=== PATIENT | female | born 1980 | race Caucasian/White ===

== ENCOUNTER 2021-04-17 20:47 | Emergency (ER) | payer OTHER ==
[~2021-04-17] VITALS: Ht 160 cm; Wt 47.6 kg
[~2021-04-17 20:47] MED LIST: ACETAMINOPHEN325 M1 PO; CALCIUM +D & M1 EAC1 PO; FAMOTIDINE PO; FERROUS SULFAT140 MG PO; FLEXERIL PO; HYDROCODON-ACE1 EAC7; IBUPROFEN 600600 M1 PO; IBUPROFEN 800800 MG PO; LORTAB 5 MG/5001 TA1 PO; NOHOMEMEDICATIONS; NORCO 5-325 TA1 EACH PO; PHENERGAN 25 MG25 M1 PO; PRENATAL; PRENATAL PO
[2021-04-17 22:51] VITALS: BP 121/79
== END 2021-04-17 22:55 | disposition home or self-care (01) ==
LOC: ER 20:47
DX: S90.122A Contusion of left lesser toe(s) without damage to nail, initial encounter (principal); Z98.890 Other specified postprocedural states; W22.8XXA Striking against or struck by other objects, initial encounter; Y93.89 Activity, other specified; Y92.89 Other specified places as the place of occurrence of the external cause; Y99.9 Unspecified external cause status